=== PATIENT | female | born 1990 ===

== ENCOUNTER 2018-05-02 13:07 | Observation (INO) | payer MEDICAID, OTHER ==
[~2018-05-02 13:07] MED LIST: Betamethasone Soluspan 30 mg/5mL Inj Susp IM ONE
[2018-05-02 13:48] VITALS: BMI 24.7
--- NOTE | 2018-05-03 11:36 | OBDCSUM ---
Datetime: 05/03/2018 11:27 Discharged to, Provider: Home Follow up at, Provider: Dania Boss Disch Instr Activity: Normal activity; Bedrest; May be up to bathroom; May be up for meals; May Show er Disch Instr Diet: Regular Discharge Instructions, Provider: Specific instructions as noted Discharge Time: 05/03/2018 11:28 Follow up in weeks, Provider: 1week in office Disch Referrals: None Disch Activity Restrictions: No exercising; No lifting; No driving; Minimize walking; Minimize stair -climbing; No sexual activity; Nothing in vagina - Rose, tampons, douche Discharge Comment, Provider: call office if any problems rto 1week Discharge Diagnosis Prov Other: oligohydramnios
--- NOTE | 2018-05-03 11:57 | US ---
Date of service: 05/03/2018 PROCEDURE: BIOPHYSICAL PROFILE HISTORY: check COMPARISON: Question of oligohydramnios. TECHNIQUE: Biophysical profile was generated using curve sector transducer and multiple projections. FINDINGS: breathing movements 2 movements 2 tones 2 Amniotic fluid 2 Total biophysical profile score 8. ABELINO equals 11.0 cm. A single viable intrauterine gestation is identified in cephalad lie with 134 beats per minute. Internal cervical os appears closed and the placenta has developed posteriorly no apparent placenta previa or abruption. IMPRESSION: Total biophysical profile score 8.
[2018-05-03] MEDS ORDERED: Betamethasone Soluspan 30 mg/5mL Inj Susp IM ONE (15:03)
[2018-05-03 16:29] VITALS: BP 122/86; PULSE 88; RESP 18; TEMP 99; O2SAT 100
== END 2018-05-03 12:28 | disposition home or self-care (01) ==
LOC: H.EROB2 13:07 → H.L&D 13:10 → H.EROB2 14:36 → H.ERHOLD 14:37 → H.L&D 16:12
PROVIDERS: ADMIT Specialist; ATTEND Specialist
DX: O41.03X0 Oligohydramnios, third trimester, not applicable or unspecified (principal); Z3A.32 32 weeks gestation of pregnancy
CPT/HCPCS: 76818; 96372; G0378; J0702

== ENCOUNTER 2018-06-14 09:18 | Inpatient (IN) | payer OTHER ==
[2018-06-14] MEDS ORDERED: Lactated Ringer's 1,000 ML IV ONE (10:16)
[2018-06-14] MEDS ORDERED: Oxytocin 30 UNIT 30 UNITS/500 ML BAG IV ONE ×3 (10:16→21:03)
[2018-06-14 10:21] VITALS: BMI 24.2
[2018-06-14 11:42] LABS: BASO # 0.1 K/uL (0.0-0.2); BASO % 0.5 % (0.0-2.0); EOS # 0.1 K/uL (0.0-0.7); EOS % 0.7 % (0.0-4.0); HEMOGLOBIN 12.5 g/dL (12.0-16.0); LYMPH # 1.7 K/uL (1.0-4.3); LYMPH % 16.5 % (20.0-40.0); MEAN CELL VOLUME 86.4 fl (81.0-99.0); MEAN CORPUSCULAR HEMOGLOBIN 28.8 pg (27.0-31.0); MEAN CORPUSCULAR HGB CONC 33.4 g/dL (33.0-37.0); MEAN PLATELET VOLUME 8.1 fl (7.2-11.7); MONO # 0.6 K/uL (0.0-0.8); MONO % 5.8 % (0.0-10.0); NEUT # 8.1 K/uL (1.8-7.0); NEUT % 76.5 % (50.0-75.0); RBC 4.34 Mil/uL (3.80-5.20); RED CELL DISTRIBUTION WIDTH 14.4 % (11.5-14.5); WHITE BLOOD COUNT 10.6 K/uL (4.8-10.8)
[2018-06-14] MEDS: Lactated Ringer's 1,000 ML IV SCH ×2 (13:45→18:55)
[2018-06-14] MEDS ORDERED: OXYTOCIN/0.9 % NS 20 UNIT/1,000 ML BAG IV SCH (17:30)
[2018-06-14] MEDS ORDERED: Fentanyl/Bupivacaine HCl 250 ML EPI ONE (17:49)
[2018-06-14] MEDS ORDERED: Bupivacaine HCl 0.5% PF (30 ml) Inj ONE (18:18)
[2018-06-14] MEDS ORDERED: Lidocaine 1% Inj (20ml) ONE (20:28)
[2018-06-14] MEDS ORDERED: OXYTOCIN/0.9 % NS 20 UNIT/1,000 ML BAG IV ONE (21:03)
[2018-06-14] MEDS ORDERED: Benzocaine/Menthol SPRAY TOP PRN (21:03)
[2018-06-15] MEDS ORDERED: Benzocaine/Menthol SPRAY TOP PRN (00:32)
[2018-06-15 06:43] LABS: HEMOGLOBIN 10.7 g/dL (12.0-16.0); MEAN CELL VOLUME 86.5 fl (81.0-99.0); MEAN CORPUSCULAR HEMOGLOBIN 28.2 pg (27.0-31.0); MEAN CORPUSCULAR HGB CONC 32.6 g/dL (33.0-37.0); RBC 3.79 Mil/uL (3.80-5.20); RED CELL DISTRIBUTION WIDTH 14.2 % (11.5-14.5); WHITE BLOOD COUNT 13.5 K/uL (4.8-10.8)
--- NOTE | 2018-06-15 12:59 | OBPPN ---
Datetime: 06/15/2018 12:52 PP Pain Prov: Within normal limits PP Nausea Prov: Denies PP Flatus Prov: Yes PP BM Prov: No PP Breasts Prov: Normal PP Heart Prov: Normal PP Lungs Prov: Normal PP Abdomen/Uterus Prov: Normal PP Lochia Prov: Normal PP Vulva/Perineum Prov: Normal PP CVA Tenderness Prov: Normal PP Extremities Prov: Normal PP Progress Prov: Normal PP Impression Prov: Normal progression PP Plan Prov: Continue present management PP Progress Note Prov: stable ppd1 continue present care IP PP Procedures: None Vital Signs Provider PP: Reviewed; Within Normal Limits
--- NOTE | 2018-06-16 12:09 | OBPPN ---
Datetime: 06/16/2018 12:05 PP Pain Prov: Within normal limits PP Pain Prov comment: no SOB, chest or leg pains PP Nausea Prov: Denies PP Flatus Prov: Yes PP BM Prov: Yes PP Nausea Prov comment: voiding well PP Breasts Prov: Not Done PP Lungs Prov: Normal PP Abdomen/Uterus Prov: Abnormal PP Lochia Prov: Normal PP CVA Tenderness Prov: Normal PP Extremities Prov: Normal PP C/S Incision Prov: Not Applicable PP Progress Prov: Normal PP Comments Phys Exam Prov: Abd soft ND, fundus firm below the umb NT, ext no calf tenderness or leg edema PP Impression Prov: Normal progression PP Plan Prov: Discharge PP Progress Note Prov: D/C home with instructions IP PP Procedures: None Vital Signs Provider PP: Reviewed
--- NOTE | 2018-06-16 12:11 | OBDCSUM ---
Datetime: 06/16/2018 12:07 Discharged to, Provider: Home Follow up at, Provider: Dr Miranda Disch Instr Activity: Bedrest; May be up to bathroom; May be up for meals; May Shower Disch Instr Diet: Regular Discharge Instructions, Provider: Routine instructions given Discharge Diagnosis, Provider: Term Delivered Discharge Time: 06/16/2018 12:08 Follow up in weeks, Provider: 4-6 wqks Disch Referrals: None Contraception discussed, Prov: Yes Disch Activity Restrictions: No exercising; No lifting; No driving; Minimize walking; Minimize stair -climbing; No sexual activity; Nothing in vagina - Gomer, tampons, douche Discharge Comment, Provider: continue PNC vit and iron Instructions given Contraception after Delivery: Undecided
[2018-06-16 18:53] VITALS: BP 123/83; PULSE 64; RESP 20; TEMP 97.9; O2SAT 100
== END 2018-06-16 13:30 | disposition home or self-care (01) | DRG 372 ==
LOC: H.L&D 10:16 → H.OB/GYN 06-15 00:15
PROVIDERS: ADMIT Specialist; ATTEND Specialist
PROC: 10E0XZZ Delivery of Products of Conception, External Approach (ICD-10-PCS; principal; 2018-06-14)
PROC: 4A1HXCZ Monitoring of Products of Conception, Cardiac Rate, External Approach (ICD-10-PCS; 2018-06-14)
PROC: 0HQ9XZZ Repair Perineum Skin, External Approach (ICD-10-PCS; 2018-06-14)
DX: O13.4 Gestational [pregnancy-induced] hypertension without significant proteinuria, complicating childbirth (principal); O70.0 First degree perineal laceration during delivery; Z3A.38 38 weeks gestation of pregnancy; Z37.0 Single live birth